=== PATIENT | female | born 1940 | race Caucasian/White ===

== ENCOUNTER 2016-05-31 15:25 | Emergency (ER) | payer MEDICARE, MEDICAID ==
[~2016-05-31] VITALS: Ht 160 cm; Wt 72.6 kg
[~2016-05-31 15:25] MED LIST: AMLODIPINE BESY10 MG PO; APIDRA SOL100 UNIT/1 PO; ASPIRIN325 MG PO; CALCIUM CITRAT480 GM PO; FISH OIL CONC1000 MG PO; LEVEMIR FL100 UNIT/1 SUBCUT; LOFIBRA160 MG PO; PRAVACHOL40 MG PO; PRILOSEC40 MG PO; PRINIVIL20 MG PO; PROZAC20 MG PO; REVLIMID2.5 MG PO; TRADJENTA5 MG PO; VELCADE3.5 MG IV; VITAMIN D35000 UNIT PO
[2016-05-31] MEDS ORDERED: VALTREX1000 MG PO (16:14)
[2016-05-31] MEDS ORDERED: AVASTIN25 MG/1 ML INJECT (16:18)
[2016-05-31] MEDS ORDERED: PHENAZOPYRIDIN100 MG PO (16:20)
[2016-05-31] MEDS ORDERED: DECADRON4 MG PO (16:22)
== END 2016-05-31 18:10 | disposition short-term general hospital (02) ==
LOC: ER 15:25
DX: R09.02 Hypoxemia (principal); R06.00 Dyspnea, unspecified; D64.9 Anemia, unspecified; Z85.79 Personal history of other malignant neoplasms of lymphoid, hematopoietic and related tissues; E11.9 Type 2 diabetes mellitus without complications; E78.5 Hyperlipidemia, unspecified; I10 Essential (primary) hypertension; K21.9 Gastro-esophageal reflux disease without esophagitis; M81.0 Age-related osteoporosis without current pathological fracture; Z90.710 Acquired absence of both cervix and uterus; Z88.1 Allergy status to other antibiotic agents; Z88.0 Allergy status to penicillin; Z88.8 Allergy status to other drugs, medicaments and biological substances